=== PATIENT | female | born 1955 | race American Indian/Alaskan Native ===

== ENCOUNTER 2019-04-11 15:43 | Emergency (ER) | payer BC, OTHER ==
[2019-04-11] MEDS ORDERED: Sodium Chloride 0.9% 10 ML Syringe FLUSH PRN (15:55)
[2019-04-11] MEDS ORDERED: Aspirin 81 MG Tab.Chew PO ONE (16:24)
--- NOTE | 2019-04-11 16:24 | EDM.PDOC ---
ED HPI GENERAL MEDICAL PROBLEM - General Chief Complaint: Neuro Symptoms/Deficits Stated Complaint: R SIDE NUMBING Time Seen by Provider: 04/11/19 15:55 Source of Information: Reports: Patient, Family History Limitations: Reports: No Limitations - History of Present Illness INITIAL COMMENTS - FREE TEXT/NARRATIVE: Patient presented to the ED because of right sided numbness and weakness of the face,RUE,RLE. She was also noted to have a slight left facial droop and slurred speech. There is no associated headache,double or blurry vision. She thought her symptoms will go away but id didn't resolve. - Related Data Allergies Allergy/AdvReac Type Severity Reaction Status Date / Time No Known Allergies Allergy Verified 04/11/19 15:57 Home Meds: Home Meds Calcium Citrate/Vitamin D3 [Calcium Cit 200-Vit D3 250 Tab] 1 tab PO BID [History] Ibuprofen 400 mg PO Q12H 04/11/19 [History] Lisinopril [Zestril] 10 mg PO DAILY 04/11/19 [History] PARoxetine [Paxil] 30 mg PO DAILY 04/11/19 [History] atorvaSTATin Calcium [Atorvastatin Calcium] 10 mg PO DAILY 04/11/19 [History] Past Medical History Cardiovascular History: Reports: Hypertension, Other (See Below) (dyslipidemia) ED ROS GENERAL - Review of Systems Review Of Systems: See Below Constitutional: Reports: No Symptoms HEENT: Reports: No Symptoms Respiratory: Reports: No Symptoms Cardiovascular: Reports: No Symptoms Endocrine: Reports: No Symptoms GI/Abdominal: Reports: No Symptoms : Reports: No Symptoms Musculoskeletal: Reports: No Symptoms Skin: Reports: No Symptoms Neurological: Reports: Numbness, Tingling, Weakness Psychiatric: Reports: No Symptoms Hematologic/Lymphatic: Reports: No Symptoms Immunologic: Reports: No Symptoms ED EXAM, NEURO - Physical Exam Exam: See Below Exam Limited By: No Limitations General Appearance: Alert, No Apparent Distress Eye Exam: Bilateral Eye: PERRL Ears: Normal External Exam, Normal Canal, Hearing Grossly Normal Nose: Normal Inspection, Nasal Swelling Throat/Mouth: Normal Inspection, Normal Lips, Other (left facial droop) Head Exam: Atraumatic, Normocephalic Neck: Normal Inspection Respiratory/Chest: No Respiratory Distress, Lungs Clear, Normal Breath Sounds Cardiovascular: Normal Peripheral Pulses, Regular Rate, Rhythm, No Edema, No Gallop GI/Abdominal: Normal Bowel Sounds, Soft, Non-Tender, No Organomegaly (Female) Exam: Normal External Exam, Normal Speculum Exam, Normal Bimanual Exam Neurological: Alert, Normal Mood/Affect, Normal Dorsiflexion, CN II-XII Intact, Normal Plantar Flexion, Normal Gait, No Motor/Sensory Deficits, Oriented x 3 Back Exam: Normal Inspection, Full Range of Motion Extremities: Normal Inspection, Normal Range of Motion, Non-Tender, No Pedal Edema Psychiatric: Normal Affect, Normal Mood Skin Exam: Warm, Dry, Intact, Normal Color Course - Vital Signs Text/Narrative:: Labs/CXR/EKG Head CT-discussed with patient and her and verbalized full understanding ASA 324 mg po x1 Neurostroke consult was done with Dr Herrera who wants patient to be transferred to [facility]. Last Recorded V/S: Last Vital Signs Temp 36.8 C 04/11/19 16:15 Pulse 71 04/11/19 16:15 Resp 20 04/11/19 16:15 BP 197/92 H 04/11/19 16:15 Pulse Ox 96 04/11/19 16:15 - Orders/Labs/Meds Orders: Active Orders 24 hr Category Date Time Status Chest 1V Frontal [CR] Stat Exams 04/11/19 15:55 Taken Head wo Cont [CT] Stat Exams 04/11/19 15:57 Taken Sodium Chloride 0.9% [Saline Flush] Med 04/11/19 15:55 Active 10 ml FLUSH ASDIRECTED PRN Saline Lock Insert [OM.PC] Routine Oth 04/11/19 15:55 Ordered Medication Orders Sodium Chloride (Saline Flush) 10 ml FLUSH ASDIRECTED PRN PRN Reason: Keep Vein Open Last Admin: 04/11/19 16:15 Dose: 10 ml Labs: Laboratory Tests 04/11/19 04/11/19 04/11/19 Range/Units 16:07 16:07 16:07 WBC 7.6 (4.5-12.0) X10-3/uL RBC 4.68 (3.23-5.20) x10(6)uL Hgb 13.5 (11.5-15.5) g/dL Hct 40.2 (30.0-51.3) % MCV 86.0 (80-96) fL MCH 28.9 (27.7-33.6) pg MCHC 33.6 (32.2-35.4) g/dL RDW 12.9 (11.5-15.5) % Plt Count 292 (125-369) X10(3)uL MPV 8.5 (7.4-10.4) fL Neut % (Auto) 52.9 (46-82) % Lymph % (Auto) 34.9 (13-37) % [place] % (Auto) 6.6 (4-12) % Eos % (Auto) 5 (1.0-5.0) % Baso % (Auto) 1 (0-2) % Neut # (Auto) 4.0 (1.6-8.3) # Lymph # (Auto) 2.7 (0.6-5.0) # [place] # (Auto) 0.5 (0.0-1.3) # Eos # (Auto) 0.4 (0.0-0.8) # Baso # (Auto) 0.0 (0.0-0.2) # PT 9.5 (8.7-11.1) INR 0.98 (0.89-1.13) APTT 25.9 (24.4-33.2) SECONDS Sodium 142 (135-145) mmol/L Potassium 4.0 (3.5-5.3) mmol/L Chloride 106 (100-110) mmol/L Carbon Dioxide 26 (21-32) mmol/L BUN 12 (7-18) mg/dL Creatinine 1.1 H (0.55-1.02) mg/dL Est Cr Clr Drug Dosing TNP Estimated GFR (MDRD) 50 L (>60) BUN/Creatinine Ratio 10.9 (9-20) Glucose 97 (80-116) mg/dL Calcium 8.7 (8.6-10.2) mg/dL Total Bilirubin 0.2 (0.1-1.3) mg/dL AST 20 (5-25) IU/L ALT 31 (12-36) U/L Alkaline Phosphatase 84 (56-112) IU/L Troponin I (<0.017-0.056) ng/mL Total Protein 7.4 (6.0-8.0) g/dL Albumin 3.6 (3.2-4.6) g/dL Globulin 3.8 g/dL Albumin/Globulin Ratio 1.0 /01/19 Range/Units 16:07 WBC (4.5-12.0) X10-3/uL RBC (3.23-5.20) x10(6)uL Hgb (11.5-15.5) g/dL Hct (30.0-51.3) % MCV (80-96) fL MCH (27.7-33.6) pg MCHC (32.2-35.4) g/dL RDW (11.5-15.5) % Plt Count (125-369) X10(3)uL MPV (7.4-10.4) fL Neut % (Auto) (46-82) % Lymph % (Auto) (13-37) % [place] % (Auto) (4-12) % Eos % (Auto) (1.0-5.0) % Baso % (Auto) (0-2) % Neut # (Auto) (1.6-8.3) # Lymph # (Auto) (0.6-5.0) # [place] # (Auto) (0.0-1.3) # Eos # (Auto) (0.0-0.8) # Baso # (Auto) (0.0-0.2) # PT (8.7-11.1) INR (0.89-1.13) APTT (24.4-33.2) SECONDS Sodium (135-145) mmol/L Potassium (3.5-5.3) mmol/L Chloride (100-110) mmol/L Carbon Dioxide (21-32) mmol/L BUN (7-18) mg/dL Creatinine (0.55-1.02) mg/dL Est Cr Clr Drug Dosing Estimated GFR (MDRD) (>60) BUN/Creatinine Ratio (9-20) Glucose (80-116) mg/dL Calcium (8.6-10.2) mg/dL Total Bilirubin (0.1-1.3) mg/dL AST (5-25) IU/L ALT (12-36) U/L Alkaline Phosphatase (56-112) IU/L Troponin I < 0.017 L (<0.017-0.056) ng/mL Total Protein (6.0-8.0) g/dL Albumin (3.2-4.6) g/dL Globulin g/dL Albumin/Globulin Ratio Meds: Medications Generic Name Dose Route Start Last Admin Trade Name Yee PRN Reason Stop Dose Admin Sodium Chloride 10 ml 04/11/19 15:55 04/11/19 16:15 Saline Flush FLUSH 10 ml ASDIRECTED PRN Administration Keep Vein Open Discontinued Medications Generic Name Dose Route Start Last Admin Trade Name Yee PRN Reason Stop Dose Admin Aspirin 324 mg 04/11/19 16:24 04/11/19 16:25 Aspirin PO 04/11/19 16:25 324 mg ONETIME ONE Administration Departure - Departure Time of Disposition: 16:00 Disposition: DC/Tfer to Acute Hospital 02 Condition: Good Clinical Impression: CVA (cerebral vascular accident) - Discharge Information Forms: ED Department Discharge Sepsis Event Note - Focused Exam Vital Signs: Vital Signs Temp Pulse Resp BP Pulse Ox 04/11/19 16:15 36.8 C 71 20 197/92 H 96 Date Exam was Performed: 04/11/19 Time Exam was Performed: 16:41 - My Orders Last 24 Hours: My Active Orders 04/11/19 15:55 Chest 1V Frontal [CR] Stat Sodium Chloride 0.9% [Saline Flush] 10 ml FLUSH ASDIRECTED PRN Saline Lock Insert [OM.PC] Routine 04/11/19 15:57 Head wo Cont [CT] Stat - Assessment/Plan Last 24 Hours: My Active Orders 04/11/19 15:55 Chest 1V Frontal [CR] Stat Sodium Chloride 0.9% [Saline Flush] 10 ml FLUSH ASDIRECTED PRN Saline Lock Insert [OM.PC] Routine 04/11/19 15:57 Head wo Cont [CT] Stat
--- NOTE | 2019-04-11 17:38 | CT ---
INDICATION: Right hemiparesis started this a.m. in right arm and leg, now also face and tongue. CT HEAD WITHOUT CONTRAST: Spiral 3.75 mm axial imaging of the brain was obtained with sagittal and coronal reconstructions 04/11/19 and compared with . Total exam DLP was 1219.22 mGy-cm. The orbits appear to be intact. The paranasal sinuses appear to be well aerated with a right-sided sphenoidal polyp decreased in size compared with the previous study. The mastoid air cells appear to be well aerated. No cranial abnormality was suggested. No shift of midline structures or ventricular abnormality was suggested. There is slight asymmetry of the lateral ventricle on the left being somewhat larger, as previously. No definite acute intracranial abnormality was seen - no bleeding site or hematoma was identified. However, in the white matter of the left frontal lobe , there is suggestion of decreased density compared with the previous examination raising question of interval white matter disease, possibly due to microvascular disease or an evolving thrombotic CVA. An MRI may be helpful for further evaluation or repeat CT scan in 48-72 hours may be helpful. IMPRESSION: 1. No definite acute intracranial abnormality. However, it is difficult to exclude an evolving thrombotic CVA in the left frontoparietal area white matter. Follow-up CT in 48-72 hours may be helpful as well as MRI. 2. Cerebrovascular disease with internal carotid artery calcification suggested at the right internal carotid artery. 3. Decreased size of a previously noted retention cyst in the right sphenoidal air cell. Report was called to Dr. Sahu at 1622 hours. [facility]
--- NOTE | 2019-04-11 17:44 | CR ---
INDICATION: Right hemiparesis. CHEST, ONE VIEW: An AP upright view of the chest was obtained and revealed the heart and mediastinum to be essentially unremarkable. An active infiltrate or effusion was not demonstrated. Overlying EKG leads are noted. Overlying bra strap is noted. Evidence of exogenous obesity is noted. IMPRESSION: No acute process. MTDD
== END 2019-04-11 16:56 ==
LOC: FB.ED 15:43
DX: I63.9 Cerebral infarction, unspecified (principal); I10 Essential (primary) hypertension; Z79.899 Other long term (current) drug therapy
CPT/HCPCS: 36415; 70450; 71045; 80053; 84484; 85025; 85610; 85730; 93005; 99285; A9270

== ENCOUNTER 2019-06-09 08:16 | Day surgery (SDC) | payer OTHER ==
[~2019-06-09 08:16] MED LIST: Lactated Ringers 1,000 ML IV SCH; Sodium Chloride 0.9% 10 ML Syringe FLUSH PRN
[2019-06-09] MEDS ORDERED: Lidocaine 1% PF 2 ML SDV INJECT ONE (08:17)
[2019-06-09] MEDS ORDERED: Propofol 200 MG/20 ML SDV IV ONE (08:17)
--- NOTE | 2019-06-09 09:54 | PCM.OPNOTE ---
- General Post-Op/Procedure Note Date of Surgery/Procedure: 06/09/19 Operative Procedure(s): c scope Findings: scattered diverticuli internal hemorrhoids Pre Op Diagnosis: hematochezia Post-Op Diagnosis: scattered diverticuli. internal hemorrhoids Anesthesia Technique: GUZMAN Primary Surgeon: Nick Silva Anesthesia Provider: Marcelino Valdez Pathology: none Complications: None Condition: Good Free Text/Narrative:: see dictation
--- NOTE | 2019-06-09 16:51 | OR ---
DATE OF OPERATION: 06/09/2019 SURGEON: Nick Silva MD PROCEDURE PERFORMED: Colonoscopy. PREOPERATIVE DIAGNOSIS: Hematochezia. POSTOPERATIVE DIAGNOSES: Diverticulosis, internal hemorrhoids. INDICATIONS FOR PROCEDURE: This is a 63-year-old white female, referred with the above-mentioned complaints. She was offered and accepted C-scope. DESCRIPTION OF OPERATION: After an excellent IV sedation was administered, digital rectal exam was performed. No marked abnormality was noted. Flexible colonoscope was inserted and advanced to the cecum. The prep was excellent. The following findings were noted. Ascending colon, unremarkable. Transverse colon, unremarkable. Descending colon, unremarkable. Sigmoid, scattered diverticula. Rectum unremarkable. On retroflexion of the scope, she has evidence of internal hemorrhoids. They appeared to be roughly about grade 2. This appears to be the presumed cause of her bleeding. RECOMMENDATIONS: Repeat colonoscopy in 10 years. We will have her followup as needed for potential banding. /[id number] /GENIE
== END 2019-06-09 11:00 | disposition home or self-care (01) ==
LOC: FB.SDS 08:16
PROVIDERS: ATTEND Surgery
DX: K57.31 Diverticulosis of large intestine without perforation or abscess with bleeding (principal); K64.1 Second degree hemorrhoids; E78.49 Other hyperlipidemia; F41.9 Anxiety disorder, unspecified; Z79.899 Other long term (current) drug therapy; Z88.5 Allergy status to narcotic agent; Z90.49 Acquired absence of other specified parts of digestive tract; Z98.890 Other specified postprocedural states
CPT/HCPCS: J2001; J2704; J7120